=== PATIENT | male | born 1970 | race Hispanic/Latino ===

== ENCOUNTER 2017-09-05 10:44 | Emergency (ER) | payer OTHER ==
[~2017-09-05] VITALS: Ht 172.7 cm; Wt 70.0 kg
[2017-09-05 11:49] VITALS: BP 162/94
[2017-09-05] MEDS ORDERED: VOLTAREN - GENE75 MG PO (11:51)
== END 2017-09-05 12:29 | disposition home or self-care (01) | DRG 605 ==
LOC: ED 10:44
DX: S60.211A Contusion of right wrist, initial encounter (principal); S63.91XA Sprain of unspecified part of right wrist and hand, initial encounter; W23.1XXA Caught, crushed, jammed, or pinched between stationary objects, initial encounter; Y93.89 Activity, other specified; Y92.79 Other farm location as the place of occurrence of the external cause; M25.531 Pain in right wrist; M25.541 Pain in joints of right hand